=== PATIENT | female | born 1985 | race Caucasian/White ===

== ENCOUNTER 2019-10-25 20:59 | Emergency (ER) | payer OTHER, SELFPAY ==
--- NOTE | ~2019-10-25 | XR_ITS ---
EXAMINATION: XR hip RT 2V w AP pelvis DATE: 10/25/2019 22:20 INDICATION: Right hip pain. TECHNIQUE: An anteroposterior view of the pelvis and 2 views of right hip were obtained. COMPARISON: CT abdomen and pelvis 04/26/2019 FINDINGS: Bone alignment is normal. No fracture. Osteitis pubis is noted. The hip joint spaces are no rmal. IMPRESSION: 1. No fracture. Reviewed, dictated and finalized at location A. LESOFT ANALYST IMPRESSION: 1. No fracture.
[2019-10-25 21:11] VITALS: BP 124/87; PULSE 136; RESP 15; O2SAT 100
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
[2019-10-26 00:55] VITALS: BP 140/90; PULSE 132; RESP 20; O2SAT 100
[2019-10-26] MEDS: KETOROLAC 30 MG/ML VIAL (*BKC) IV PUSH (01:16)
[2019-10-26 02:45] VITALS: BP 129/81; PULSE 90; RESP 19; O2SAT 100
[2019-10-26 04:04] VITALS: BP 120/80; PULSE 99; RESP 18; TEMP 36.9; O2SAT 100
== END 2019-10-26 04:08 | disposition home or self-care (01) ==
PROVIDERS: Emergency Provider General Practice
DX: M25.551 Pain in right hip (principal); J45.909 Unspecified asthma, uncomplicated
CPT/HCPCS: 73502; 73521; 81025; 96374; 96375; 99284; J1885; J3360

== ENCOUNTER 2020-04-11 18:30 | Emergency (ER) | payer SELFPAY ==
--- NOTE | ~2020-04-11 | CT_ITS ---
EXAMINATION: CT abdomen pelvis w con DATE: 04/11/2020 20:27 INDICATION: Right-sided flank and abdominal pain. TECHNIQUE: Computed tomography (CT) of the abdomen and pelvis was performed with 100 mL Omnipaque-350 intravenous contrast. Automated exposure control and iterative reconstruction technique were employe d. The dose-length product was 162.34 mGy-cm. COMPARISON: 04/26/2019 FINDINGS: Lung bases are clear. Heart size is normal. No pericardial or pleural effusion. Again seen is a geogr aphic region of focal hepatic steatosis along the ligamentum teres. 7 mm fluid attenuation cyst in th e right hepatic lobe. Gallbladder, spleen, pancreas, bilateral adrenal glands and left kidney are nor mal. 2-3 mm obstructing stone at the right ureterovesicular junction with mild to moderate right hydr oureteronephrosis and delayed right nephrogram. Bladder is normal. Anteverted uterus with se ction scar along the anterior lower uterine segment. There is a discontinuity in the enhancing periph eral wall of a likely ruptured 2.1 cm corpus luteum cyst at the left adnexa. Small amount of likely p hysiologic free fluid at the left adnexa. Bowels are unremarkable with no wall thickening or obstruct ion. The appendix is not visualized. No pericecal inflammatory change to suggest acute appendicitis. No pathologically enlarged abdominal or pelvic lymphadenopathy. Mild thoracolumbar dextrocurvature. IMPRESSION: 1. Obstructing 2-3 mm stone at the right ureterovesicular junction with mild to moderate right hydron ephrosis and delayed right nephrogram. 2. Small amount of likely physiologic free fluid at the left adnexa surrounding appears to be a ruptu red 2.1 cm left ovarian corpus luteum cyst. Reviewed, dictated and finalized at location A. IMPRESSION: 1. Obstructing 2-3 mm stone at the right ureterovesicular junction with mild to moderate right hydronephrosis and delayed right nephrogram. 2. Small amount of likely physiologic free fluid at the left adnexa surrounding appears to be a ruptured 2.1 cm left ovarian corpus luteum cyst.
[2020-04-11 18:52] VITALS: BP 123/45; PULSE 70; RESP 20; TEMP 36.3; O2SAT 100
--- NOTE | 2020-04-11 18:59 | ED.ABDPAIN ---
HPI - Abdominal Pain General Chief Complaint: Abdominal Pain Stated Complaint: right flank pain Time Seen by Provider: 04/11/20 18:42 Source: patient Mode of arrival: ambulatory Limitations: no limitations History of Present Illness HPI narrative: This is a 34-year-old female that presents to the emergency department for right-sided flank pain x1 week. Reports the pain radiates into the right side of her abdomen. Also reports some urinary discomfort and hematuria. Reports she was seen at another facility for this a week ago and discharged with an anti-inflammatory. Denies fever, nausea, or vomiting. Related Data Allergies Allergy/AdvReac Type Severity Reaction Status Date / Time No Known Allergies Allergy Verified 04/11/20 19:04 Review of Systems Review of Systems: Narrative: CONSTITUTIONAL: Denies fever GASTROINTESTINAL: Reports abdominal pain. Denies nausea, vomiting, or diarrhea. GENITOURINARY: Reports dysuria and hematuria. All systems reviewed & are unremarkable except as noted in HPI and below PMFSH Past Medical History Medical History (Updated 04/11/20 @ 21:44 by Sully Palmer PA-C) Asthma Seizure TB meningitis Surgical History Surgical History (Updated 10/25/19 @ 21:59 by Shay Mercado) H/O section Social History Social History (Updated 04/11/20 @ 21:41 by Sully Palmer PA-C) Smoking status: Smoker, status unknown Substance use type: amphetamines Gender identity (if verbalized by the patient): Female Exam Narrative: Exam Narrative: GENERAL: Well-appearing, well-nourished, and in no acute distress. HEAD: Normocephalic, atraumatic. EYES: EOMI. CHEST: Clear to auscultation. No respiratory distress. No wheezes rales or rhonchi HEART: Regular rate and rhythm. No murmur heard. Normal peripheral pulses. ABDOMEN: Soft, nondistended, normal active bowel sounds. Tender palpation of the right lower quadrant, without guarding. No CVA tenderness EXTREMITIES: Normal range of motion. No edema. SKIN: Warm, dry, no rash. NEURO: No focal deficits. Alert and oriented x3. PSYCH: Normal mood and affect Course Consultations Consultation #1: Spoke with Dr. Kaiser about patient and work-up who will follow-up in clinic. Patient will be started on Flomax and given pain medication as needed for home. Date: 04/11/20 Time: 21:43 Vital Signs Vital signs: Vital Signs Temperature 97.4 F L 04/11/20 18:52 Pulse Rate 70 04/11/20 18:52 Respiratory Rate 20 04/11/20 18:52 Blood Pressure 123/45 L 04/11/20 18:52 Pulse Oximetry 100 04/11/20 18:52 Temperature 97.4 F L 04/11/20 18:52 Pulse Rate 88 04/11/20 20:51 Respiratory Rate 19 04/11/20 20:51 Blood Pressure 122/79 04/11/20 20:51 Pulse Oximetry 100 04/11/20 20:51 MDM - Abdominal Pain MDM Narrative Medical decision making narrative: Patient presents to the emergency department for right-sided flank/abdominal pain for the last week. Patient is afebrile and nontoxic-appearing. Leukocytosis on CBC to 14.3. Metabolic panel with mild FANNIE. Patient given 2 L of IV fluids in the ED. UA with 4-6 white blood cells and greater than 75 red cells, also many squamous epithelial cells. Likely not a clean-catch. CT scan of the abdomen and pelvis shows an obstructing 2 to 3 mm stone at the right UVJ with mild to moderate right hydronephrosis. Also shows a likely recently ruptured ovarian cyst on the left. Patient updated on case findings. Given pain medication in the ED with relief. Spoke with Dr. Kaiser about patient and work-up who will follow-up in clinic. Patient will be started on Flomax and given pain medication as needed for home. We will give her a couple of days of an antibiotic for white cells in her urine and leukocytosis on CBC. Patient is stable and felt appropriate for further outpatient evaluation. She is to follow-up with urology. She was given warnings to return to the ER Lab Data Attestation: I reviewed
[2020-04-11 19:26] LABS: Basophils Absolute Auto 0.1 K/mm3 (0.0-0.1); Basophils Percent Auto 0.3 % (0.2-1.2); Eosinophils Absolute Auto 0.1 K/mm3 (0-0.3); Eosinophils Percent Auto 0.9 % (0-4.4); Hemoglobin 10.9 g/dL (12.0-15.0); Immature Granulocyte Absolute 0.05 K/mm3 (0.00-0.031); Immature Granulocyte Percent A 0.3 % (0-0.5); Lymphocytes Absolute Auto 2.11 K/mm3 (0.9-3.2); Lymphocytes Percent Auto 14.8 % (18.3-44.2); Mean Corpuscular Hemoglobin 27.7 pg (26-34); Mean Corpuscular Volume 83.8 fl (80-100); Mean Platelet Volume 8.9 fl (7.4-10.4); Monocytes Absolute Auto 1.2 K/mm3 (0.1-0.6); Neutrophils Absolute Auto 10.8 K/mm3 (1.3-6.7); Neutrophils Percent Auto 75.7 % (45.5-73.1); Platelet Count Result 370 k/mm3 (150-375); Red Blood Count 3.94 M/mm3 (4.2-5.4); Red Cell Distribution Width 14.3 % (11.5-14.5); White Blood Count 14.3 K/mm3 (4.5-10.0)
[2020-04-11] MEDS: MORPHINE SULFATE 2 MG/ML INJ IV PUSH (19:28)
[2020-04-11] MEDS: ONDANSETRON INJ 4 MG/2 ML VIAL IV PUSH (19:28)
[2020-04-11 19:31] LABS: Add Urine Microscopic? YES; Appearance Urine Clear (Clear); Bilirubin Urine Negative (Negative); Blood Urine 3+ (Negative); Color Urine Straw (Yellow); Glucose Urine UA Negative (Negative); Ketones Urine Negative (Negative); Leukocyte Esterase Ur Negative LEU/UL (Negative); Mucus Urine Rare /lpf; Nitrate Urine Negative (Negative); Protein Urine Negative (Negative); RBC Urine >75 /hpf (0-2); Specific Grav Ur 1.026 (1.001-1.035); Squamous Epithelial Cell Urine Many /hpf (Few); Urobilinogen Urine Negative mg/dL (<2.0)
[2020-04-11 20:08] LABS: Alanine Aminotransferase 13 U/L (4-35); Albumin Level 3.9 g/dL (3.5-5.1); Alkaline Phosphatase 100 U/L (38-126); Aspartate Amino Transferase 31 U/L (14-36); Bilirubin,Total 0.2 mg/dL (0.2-1.3); Blood Urea Nitrogen 16 mg/dL (7-17); Calcium 8.9 mg/dL (8.4-10.2); Carbon Dioxide 22 mmol/L (22-30); Chloride 109 mmol/L (98-107); Estimated Glomerular Filt Rate 57; Glucose 94 mg/dL (65-105); Lipase 50 U/L (23-300); Potassium 3.6 mmol/L (3.4-5.0); Sodium 138 mmol/L (137-145)
[2020-04-11] MEDS: SODIUM CHLORIDE 0.9% IV 1,000 ML 999 ML IV CONT ×2 (20:35→21:08)
[2020-04-11 20:51] VITALS: BP 122/79; PULSE 88; RESP 19; O2SAT 100
[2020-04-11] MEDS: KETOROLAC 15 MG/ML VIAL (*BKC) IV PUSH (21:07)
[2020-04-11 21:57] VITALS: BP 121/79; PULSE 80; RESP 19; TEMP 36.4; O2SAT 100
== END 2020-04-11 21:58 | disposition home or self-care (01) ==
PROVIDERS: Physician Assistant; Emergency Provider Emergency Medicine
DX: N13.2 Hydronephrosis with renal and ureteral calculous obstruction (principal); J45.909 Unspecified asthma, uncomplicated
CPT/HCPCS: 36415; 74177; 80053; 81001; 81025; 83690; 85025; 87086; 87088; 96361; 96365; 96375; 99284; J0131; J1885; J2270; J2405; J7030; Q9967

== ENCOUNTER 2020-08-15 01:09 | Emergency (ER) | payer SELFPAY ==
--- NOTE | ~2020-08-15 | CT_ITS ---
EXAMINATION: CT brain wo con DATE: 08/15/2020 01:23 INDICATION: Seizure with fall TECHNIQUE: Computed tomography (CT) of the head was performed without intravenous contrast. Sagittal and coronal reconstructions were performed. The mA was adjusted according to patient size. Iterative reconstruction technique was employed. The dose-length product was 529.67 mGy-cm. COMPARISON: None FINDINGS: No fracture. No acute intracranial hemorrhage, acute infarction or abnormal extra axial fluid collect ion. Ventricles are normal and symmetric. No mass/mass effect. The orbits, paranasal sinuses and mast oid air cells are normal. IMPRESSION: 1. No acute intracranial process. Reviewed, dictated and finalized at location A.
[2020-08-15 01:09] VITALS: BP 114/87; PULSE 106; RESP 18; TEMP 36.8; O2SAT 100
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
[2020-08-15 01:38] LABS: Basophils Absolute Auto 0.1 K/mm3 (0.0-0.1); Basophils Percent Auto 0.4 % (0.2-1.2); Eosinophils Absolute Auto 0.1 K/mm3 (0-0.3); Eosinophils Percent Auto 0.7 % (0-4.4); Hematocrit 37.5 % (37.0-47.0); Immature Granulocyte Absolute 0.04 K/mm3 (0.00-0.031); Immature Granulocyte Percent A 0.3 % (0-0.5); Lymphocytes Absolute Auto 1.91 K/mm3 (0.9-3.2); Lymphocytes Percent Auto 16.4 % (18.3-44.2); Mean Corpuscular Hemoglobin 26.6 pg (26-34); Mean Corpuscular Volume 83.1 fl (80-100); Mean Platelet Volume 9.1 fl (7.4-10.4); Monocytes Absolute Auto 0.5 K/mm3 (0.1-0.6); Monocytes Percent Auto 4.4 % (2.6-8.5); Neutrophils Absolute Auto 9.1 K/mm3 (1.3-6.7); Neutrophils Percent Auto 77.8 % (45.5-73.1); Platelet Count Result 305 k/mm3 (150-375); Red Blood Count 4.51 M/mm3 (4.2-5.4); Red Cell Distribution Width 15.1 % (11.5-14.5); White Blood Count 11.7 K/mm3 (4.5-10.0)
[2020-08-15] MEDS: PHENYTOIN SODIUM 100 MG CAP 500 MG PO (01:38)
[2020-08-15 01:52] LABS: Alanine Aminotransferase 13 U/L (4-35); Albumin Level 4.1 g/dL (3.5-5.1); Alkaline Phosphatase 86 U/L (38-126); Anion Gap 5 mmol/L (8-16); Aspartate Amino Transferase 31 U/L (14-36); Bilirubin,Total 0.3 mg/dL (0.2-1.3); Blood Urea Nitrogen 15 mg/dL (7-17); Calcium 9.1 mg/dL (8.4-10.2); Carbon Dioxide 27 mmol/L (22-30); Chloride 104 mmol/L (98-107); Estimated Glomerular Filt Rate > 60; Glucose 107 mg/dL (65-105); Potassium 3.5 mmol/L (3.4-5.0); Sodium 136 mmol/L (137-145)
--- NOTE | 2020-08-15 02:00 | PC.NURSE ---
RN watched pt. amb out of ED w/ steady gait. RN asked pt. if she was d/c. PT. stated No the Doctor was going to let me go before the police got here. pt. NAD at time of departure.
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
== END 2020-08-15 01:45 | disposition left against medical advice (07) ==
PROVIDERS: Emergency Provider Nurse Practitioner
DX: R56.9 Unspecified convulsions (principal); J45.909 Unspecified asthma, uncomplicated; F17.210 Nicotine dependence, cigarettes, uncomplicated
CPT/HCPCS: 36415; 70450; 80053; 85025; 99284; A9270

== ENCOUNTER 2020-10-08 23:41 | Emergency (ER) | payer MEDICAID, SELFPAY ==
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
--- NOTE | ~2020-10-08 | XR_ITS ---
EXAMINATION: XR ankle LT min 3V DATE: 10/09/2020 00:31 INDICATION: Left ankle injury. TECHNIQUE: 4 views of left ankle were obtained. COMPARISON: None. FINDINGS: Bone alignment is normal. No fracture. There is mild osteoarthritis of talonavicular joint. IMPRESSION: 1. Mild osteoarthritis of talonavicular joint. Reviewed, dictated and finalized at location A. [employer]
--- NOTE | ~2020-10-08 | XR_ITS ---
EXAMINATION: XR foot LT min 3V DATE: 10/09/2020 00:31 INDICATION: Left foot injury. TECHNIQUE: 4 views of left foot were obtained. COMPARISON: None. FINDINGS: Bone alignment is normal. No fracture. There is mild osteoarthritis of talonavicular joint and first metatarsophalangeal joint. IMPRESSION: 1. Mild polyarticular osteoarthritis. Reviewed, dictated and finalized at location A. MECHANIC
[2020-10-08 23:46] VITALS: BP 117/64; PULSE 104; RESP 16; TEMP 36.2; O2SAT 100
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
[2020-10-09] MEDS: HYDROcodone/acetaminophen (*CRX) 5-325 MG TABLET 1 TAB PO (00:35)
[2020-10-09 02:14] VITALS: BP 116/72; PULSE 87; RESP 16; TEMP 36.6; O2SAT 100
--- NOTE | 2020-10-09 02:15 | PC.NURSE ---
Pt ambulated in butts independently. States she would like an bebo wrap but doesnt require crutches.
[2020-10-09 03:59] VITALS: BP 110/96; PULSE 99; RESP 16; TEMP 36.8; O2SAT 100
== END 2020-10-09 04:00 | disposition home or self-care (01) ==
PROVIDERS: Emergency Provider Emergency Medicine
DX: J45.909 Unspecified asthma, uncomplicated (principal); F17.210 Nicotine dependence, cigarettes, uncomplicated; S93.602A Unspecified sprain of left foot, initial encounter; Y04.2XXA Assault by strike against or bumped into by another person, initial encounter
CPT/HCPCS: 70450; 73610; 73630; 99284; A9270

== ENCOUNTER 2025-05-21 12:54 | Emergency (ER) | payer OTHER, SELFPAY ==
[2025-05-21 13:00] VITALS: BP 117/72; PULSE 89; RESP 14; TEMP 36.1; O2SAT 100
--- NOTE | 2025-05-21 13:04 | ED.GENADULT ---
HPI - General Adult General Chief complaint: Unspecified Stated complaint: blisters on feet/vomiting Time Seen by Provider: 05/21/25 13:12 Source: patient, RN notes reviewed and old records reviewed Mode of arrival: ambulatory Limitations: no limitations History of Present Illness HPI narrative: 39-year-old female presents to the [facility] with complaints of a blister to the fall of bilateral feet. States that she does not have shoes that fit well, 1 size too big and does do a lot a walking. Patient is also approximately 6 or 7 weeks late for her period, concern for . States that she has been vomiting without abdominal pain every morning. Treatments prior to arrival: none Related Data Allergies Allergy/AdvReac Type Severity Reaction Status Date / Time No Known Allergies Allergy Verified 05/21/25 13:02 Review of Systems Review of Systems: All systems reviewed & are unremarkable except as noted in HPI and below Constitutional: Constitutional: Reports no additional constitutional complaints Gastrointestinal: Gastrointestinal: Reports as per HPI, Denies abdominal pain, Denies nausea and Reports vomiting Genitourinary: Genitourinary: Reports as per HPI, Reports abnormal menses and Denies dysuria Musculoskeletal: Musculoskeletal: Reports no additional musculoskeletal complaints Integumentary/Breasts: Skin/Breast: Reports as per HPI PMFSH Past Medical History Medical History Asthma TB meningitis Seizure Surgical History Surgical History H/O section Social History Social History Smoking status: Current every day smoker Tobacco type: cigarettes Substance use type: amphetamines Living arrangements: with family Gender identity (if verbalized by the patient): Female Comments At the time of my signature, I reviewed and agree with the nursing past medical, surgical, social, and family history. There is no relevant family history pertinent to the patient complaint. Exam Const: General: cooperative, healthy appearing, comfortable, no acute distress, well developed, alert and well nourished Nutritional Appearance: well nourished Orientation/consciousness: patient oriented x3 Limitations: no limitations HENMT: Head: normal to inspection Eyes: General: appearance normal, both eyes and all related structures Alignment and Position: alignment normal Neck: Neck: normal visual inspection, full ROM, no lymphadenopathy and no meningeal signs Chest: Chest palpation & inspection: normal inspection of the chest Resp: Effort & Inspection: normal respiratory effort and able to speak in complete sentences Auscultation: clear to auscultation bilaterally, no crackles, no rales, no rhonchi and no wheezes Cardio: Rate: regular rate GI: GI Palp: No abdominal tenderness Skin: General skin exam: normal color and no rashes or lesions noted Other: One blister to each of her feet plantar aspect at the ball of each foot. Neuro: General: patient oriented x3, gait normal, moves all extremities and no meningeal signs Cognition (Neuro): normal cognition Speech: normal speech Gait exam (Neuro): Normal gait present Extrem: General: normal to inspection, full ROM, capillary refill normal and normal gait Psych: Appearance: grossly normal and well kempt Mental Status: mental status grossly normal Speech and movement: Normal speech and movement present and Clear speech present Affect: normal affect Attitude: cooperative Course Course Level of Care: Express Care Visit Vital Signs Vital signs: Vital Signs Temperature 97 F L 05/21/25 13:00 Pulse Rate 89 05/21/25 13:00 Respiratory Rate 14 05/21/25 13:00 Blood Pressure 117/72 05/21/25 13:00 Pulse Oximetry 100 05/21/25 13:00 Temperature 97 F L 05/21/25 13:00 Pulse Rate 89 05/21/25 13:00 Respiratory Rate 14 05/21/25 13:00 Blood Pressure 117/72 05/21/25 13:00 Pulse Oximetry 100 05/21/25 13:00 Reviewed Medical Decision Making MDM Narrative Medical decision making narrative: Patient sitting comfortably in exam room. Nontoxic, vitals stable. Patient in no acute distress Patient presents with 2 concerns, 1st was , negative urine test. Patient also has a blister on each of her foot at the ball of the foot. Area was cleaned, patient had already cut away skin of the blister and popped a move. No signs of cellulitic changes. Patient appropriate for outpatient treatment and follow-up Discharge instructions reviewed with patient, as well as provided in writing per nursing staff. The instructions also include specific and strict return/GO TO THE ER as well as f/u information. All questions have been answered, and the patient deny any further questions with discharge and discharge plan. Some parts of this dictation were generated by voice recognition software and may contain typographical and/or grammatical inaccuracies. Medical Records Medical records reviewed: Yes I reviewed the external patient's medical records. Vital Signs Vital Signs: Vital Signs Temperature 97 F L 05/21/25 13:00 Pulse Rate 89 05/21/25 13:00 Respiratory Rate 14 05/21/25 13:00 Blood Pressure 117/72 05/21/25 13:00 Pulse Oximetry 100 05/21/25 13:00 Temperature 97 F L 05/21/25 13:00 Pulse Rate 89 05/21/25 13:00 Respiratory Rate 14 05/21/25 13:00 Blood Pressure 117/72 05/21/25 13:00 Pulse Oximetry 100 05/21/25 13:00 Reviewed Lab Data Lab results reviewed: Yes I reviewed the patient's lab results. Labs: Lab Results 05/21/25 Range/Units 13:22 POC Urine HCG, Qual Negative (Negative) Reviewed Critical Care Time Critical Care Time Critical Care Time: No Discharge Plan Discharge Clinical Impression: Blister of foot, Urine test negative Patient Disposition: Home Condition: Stable Instructions: Blister (ED) Additional Instructions: Soak feet twice a day in soapy water with Epson salts. Pat dry. Change socks often. Wear shoes that fit. Follow-up with primary care provider this week for further evaluation of your period Being late. For new or worsening symptoms please proceed to the emergency Patient Language: Bulgarian Follow-up/Referrals: PHYSICIAN,YOUTH PROGRAM DIRECTOR [Primary Care Provider] - Miguel Ángel Sanchez MD [Physician] - Time of Disposition: 13:28
[2025-05-21 13:31] LABS: BEDSIDEPREGUCG Negative (Negative)
== END 2025-05-21 13:33 | disposition home or self-care (01) ==
PROVIDERS: Emergency Provider Nurse Practitioner
DX: S90.822A Blister (nonthermal), left foot, initial encounter (principal); S90.821A Blister (nonthermal), right foot, initial encounter; X58.XXXA Exposure to other specified factors, initial encounter; Z32.02 Encounter for pregnancy test, result negative; F17.210 Nicotine dependence, cigarettes, uncomplicated; J45.909 Unspecified asthma, uncomplicated
CPT/HCPCS: 81025; 99212; G0463